=== PATIENT | male | born 2005 | race Caucasian/White ===

== ENCOUNTER 2025-03-24 13:56 | Outpatient (CLI) | payer OTHER, SELFPAY | END 2025-03-24 13:57 | disposition home or self-care (01) | PROVIDERS: PCP Family Medicine; Visit Provider Family Medicine | DX: Z00.00 Encounter for general adult medical examination without abnormal findings (principal); Z13.39 Encounter for screening examination for other mental health and behavioral disorders; F41.8 Other specified anxiety disorders | CPT/HCPCS: 80048; 84443 ==